=== PATIENT | female | born 1950 | race Two or more races ===

== ENCOUNTER 2017-08-05 09:34 | Outpatient (CLI) | payer OTHER ==
[2017-08-24] MEDS ORDERED: CALCI-CHEW500 MG PO (10:02)
[2017-08-24] MEDS ORDERED: LOTREL 5-40 MG1 EACH PO (10:02)
[2017-08-24] MEDS ORDERED: CRESTOR10 MG PO (10:03)
[2017-08-24] MEDS ORDERED: CLONAZEPAM0.5 MG PO (10:03)
[2017-08-24] MEDS ORDERED: BONIVA150 MG PO (10:04)
== END 2017-08-05 10:09 | disposition home or self-care (01) ==
LOC: SONOGRAMA 09:34
DX: N63.41 Unspecified lump in right breast, subareolar (principal); N60.11 Diffuse cystic mastopathy of right breast; N60.12 Diffuse cystic mastopathy of left breast

== ENCOUNTER 2017-08-26 06:20 | Day surgery (SDC) | payer OTHER ==
[~2017-08-26 06:20] MED LIST: BONIVA150 MG PO; CALCI-CHEW500 MG PO; CLONAZEPAM0.5 MG PO; CRESTOR10 MG PO; LOTREL 5-40 MG1 EACH PO
== END 2017-08-26 15:25 | disposition home or self-care (01) ==
LOC: CIR.AMB 06:20
DX: N60.11 Diffuse cystic mastopathy of right breast (principal)